=== PATIENT | male | born 1960 | race Hispanic/Latino ===

== ENCOUNTER 2022-01-09 08:35 | Emergency (ER) | payer OTHER ==
[~2022-01-09] VITALS: Ht 167.6 cm; Wt 113.4 kg
[2022-01-09 09:16] LABS: BASOPHILS % (AUTO) 0.6 % (0.0-5.0); EOSINOPHILS % (AUTO) 4.8 % (0.0-8.0); HEMATOCRIT 29.1 % (42-54); LYMPHOCYTES % (AUTO) 16.3 % (21.0-51.0); MEAN CORPUSCULAR HEMOGLOBIN 26.7 pg (27.0-33.0); MEAN CORPUSCULAR VOLUME 81.1 fL (79-99); MONOCYTES % (AUTO) 8.6 % (3.0-13.0); NEUTROPHILS % (AUTO) 69.4 % (40.0-77.0); PLATELET COUNT (AUTO) 327 K/uL (130-400); RED BLOOD CELL COUNT(AUTO) 3.59 MIL/uL (4.50-6.20); RED CELL DISTRIBUTION WIDTH 13.7 % (11.0-15.5); WHITE BLOOD COUNT (AUTO) 6.6 K/uL (4.8-10.8)
[2022-01-09 09:40] LABS: ALBUMIN 2.5 g/dL (3.5-5.0); BILIRUBIN,TOTAL 0.2 mg/dL (0.2-1.0); CREATININE 1.3 mg/dL (0.5-1.5); POTASSIUM 3.5 mmol/L (3.5-5.1); TOTAL PROTEIN, SERUM 6.5 g/dL (6.0-8.3)
[2022-01-09] MEDS ORDERED: INSULIN HUMULIN R 100 UNIT/ML 3ML IV ONE (10:30)
[2022-01-09] MEDS ORDERED: 0.9%NACL 1000ML 1,000 ML IV ONE (10:30)
[2022-01-09 12:01] VITALS: BP 151/80
== END 2022-01-09 12:25 | disposition home or self-care (01) ==
LOC: EDH 08:35
DX: E11.9 Type 2 diabetes mellitus without complications (principal); I10 Essential (primary) hypertension; F31.9 Bipolar disorder, unspecified; E86.0 Dehydration; Z59.00 Homelessness unspecified
CPT/HCPCS: 36415; 80053; 82550; 82948; 85025; 93005; 96361; 96374; 99284; J1815; J7030